=== PATIENT | male | born 1990 | race Caucasian/White ===

== ENCOUNTER 2022-11-23 10:58 | Outpatient (CLI) | payer OTHER, SELFPAY | END 2022-11-23 10:59 | disposition home or self-care (01) | LOC: LONREF 10:59 | PROVIDERS: PCP Family Medicine; Visit Provider Family Medicine | DX: Z13.6 Encounter for screening for cardiovascular disorders (principal) | CPT/HCPCS: 80061 ==

== ENCOUNTER 2022-12-08 15:22 | Emergency (ER) | payer OTHER, SELFPAY ==
[2022-12-08 15:31] VITALS: BP 170/95; PULSE 106; RESP 16; TEMP 36.7; O2SAT 96; BMI 36.6
[2022-12-08 15:36] VITALS: BP 159/83
--- NOTE | 2022-12-08 18:29 | ED.LOWEXIN ---
HPI - Extremity Injury (Lower) General Time Seen by Provider: 18:29 Date Seen: 12/08/22 Chief Complaint: Extremity Pain/Injury, Lower Stated Complaint: Fell Sat-Amb to 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 He took off at a sprint during his job. He states he made about 4 steps and then his knee just gave out, felt a pop. He initially went to [facility], states he got an x-ray, got oxycodone. He was referred to [facility] and saw a PA in the urgent care. They are waiting prior authorization of an MRI of this knee. Today he noted that his left calf looks smaller than the right. They are noticing some bruising that is developing behind the left ankle. He had an area below the left knee that was ice cold, toes felt tingly for a while. This is resolved by the time I am seen him. There was unfortunately a wait and high volume in our ER. He states that he was given a knee immobilizer from [facility] but the PA that he saw at [facility] told him that he should get out of this as soon as possible after 24 hours, did not want him to get a stiff knee. He has crutches as well to ambulate with. He has to use the knee immobilizer at night otherwise he will have sharp and severe pain when rolling or moving. His pain management is not adequate, did not take more pain medicines when offered by [facility]. Related Data Previous Rx's Medication Instructions Recorded valacyclovir 1 gram tablet 1,000 mg PO TID #21 tabs 03/17/22 escitalopram oxalate 20 mg tablet 20 mg PO QDAY #30 tabs 11/23/22 dextroamphetamine-amphetamine ER 20 mg PO QAM #30 caps 12/08/22 20 mg 24hr capsule,extend release oxycodone 5 mg tablet 5 mg PO Q6H PRN pain #10 tabs 12/08/22 Allergies Allergy/AdvReac Type Severity Reaction Status Date / Time No Known Allergies Allergy Unknown Verified 12/08/22 15:31 Review of Systems Narrative: As per HPI. PFSH PFSH Family History Other Diabetes Social History What is your current living situation?: I presently have a place to live Problems where you live: no known problems In the past 12 months, utilities in danger of being shut off: no In past 12 months, lack of transportation kept you from medical appts, meetings, work, or getting things needed for daily living: no In the past 12 mos, have been you worried that your food would run out before you had money to buy more?: never true In the past 12 mos, the food you bought just didn't last and you didn't have money to buy more?: never true Smoking Status: Never smoker Do you use any of these nicotine containing products: Smokeless Tobacco Second hand tobacco smoke exposure: No How often do you have a drink containing alcohol: never How often do you have six or more drinks on one occasion: Never AUDIT-C Alcohol total score: 0 Non-prescribed substance use: denies use How often does anyone, including family, friends and others, physically hurt you: never How often does anyone, including family, friends and others, insult or talk down to you: never How often does anyone, including family, friends and others, threaten you with harm: never How often does anyone, including family, friends and others, scream or curse at you: never Little interest or pleasure in doing things: nearly every day Feeling down, depressed, or hopeless: nearly every day service: No Exam Const: Vital Signs, click to edit/add: Vital Signs - 24 hr 12/08/22 15:31 12/08/22 15:36 Temperature 98.0 F Pulse Rate [Pulse Oximeter] 106 H Respiratory Rate 16 Blood Pressure [Ri ght Upper Arm] 170/95 H 159/83 H Pulse Oximetry 96 Oxygen Delivery Me thod Room Air Patient ambulated in with crutches, no knee immobilizer. He has little bit of well-healing abrasion anteriorly over the left knee area. There is a little bit of soft tissue change but no definite effusion of the left knee. He has the ability to straight leg raise. His pain seems to be more interior in the knee despite worry palpate medially, laterally over anteriorly over the knee. The patella is intact. Achilles is intact on testing. Indeed visually he looks like there is a paucity of muscle tissue medially over the gastrocs when I compare it to his right side. There is no significant erythema no significant coloration change outside of a little bit of dependent bruising inferiorly and posteriorly behind the lateral malleolus on the left. His dorsalis pedis and posterior tibialis pulses are equal and symmetrical. He has normal coloration of his skin, skin is warm throughout his left lower extremity. Normal sensation of the toes, normal cap refill. Did briefly review sensory changes that sometimes can happen with injuries, right now his exam is normal. Documenting provider has reviewed patient's vital signs: yes Course Course ED Course: Reviewed with patient that we can look at a musculoskeletal ultrasound to see if there is any deficit. Right now I see absolutely no clinical changes of any sensation or vascularity. His legs are equally warm. They did state that earlier there was a patch of white just below his left knee that was ice cold. His toes felt numb and tingly at the time. With a negative x-ray reported from [place], no dislocation, doubt that there is any lack of vascular integrity. There is no swelling to suggest any DVT. Indeed he looks like he has loss of maybe some muscle mass medially along the gastrocnemius. We discussed that I do not have MRI here nor would I order it in this situation. It is not needed emergently. Did also ask about the knee immobilizer. He states the orthopedic PA he saw told him that he should not wear it after 24 hours, should try to be out of it so his knee would not stiffen up. He does describe that sleeping is quite problematic, he needs to wear it at night otherwise he wakes up with pain with rolling or moving. Reevaluation(s) Time of Reevaluation #1: 19:08 Reevaluation #1: Unfortunately, our practice physician does not feel comfortable without having the radiologist here to do an MSK ultrasound. She does feel MRI would probably be more appropriate and again is not needed emergently. I did go back and talk to the patient and his about this. We reiterated using the knee immobilizer as needed for pain control and ambulation. He does have crutches. I would not have him bear weight on this leg without the knee immobilizer on if it is painful. We did discuss the possibility of further injury if he stepped wrong placed weight on this wrong and the knee gave out. He did not take any pain meds from [facility] on Wednesday. He had been in the ER in [place] and by the time he got to [facility], was still feeling the effects of the oxycodone given to him in [place]. I will give them a small amount of pain medicines, will need to follow up with primary care provider or Orthopedics for further pain management. Vital Signs Vital signs: Initial Vital Signs Temperature 98.0 F 12/08/22 15:31 Temperature Source Temporal Artery Scan 12/08/22 15:31 Pulse Rate 106 H 12/08/22 15:31 Pulse Rhythm Regular 12/08/22 15:31 Pulse Strength 3+ Normal 12/08/22 15:31 Respiratory Rate 16 12/08/22 15:31 Blood Pressure 170/95 H 12/08/22 15:31 Blood Pressure Mean 120 H 12/08/22 15:31 Blood Pressure Position Sitting 12/08/22 15:31 Pulse Oximetry 96 12/08/22 15:31 Oxygen Delivery Method Room Air 12/08/22 15:31 Vital Signs Temperature 98.0 F 12/08/22 15:31 Pulse Rate 106 H 12/08/22 15:31 Respiratory Rate 16 12/08/22 15:31 Blood Pressure 170/95 H 12/08/22 15:31 Pulse Oximetry 96 12/08/22 15:31 Oxygen Delivery Method Room Air 12/08/22 15:31 Temperature 98.0 F 12/08/22 15:31 Pulse Rate 106 H 12/08/22 15:31 Respiratory Rate 16 12/08/22 15:31 Blood Pressure 159/83 H 12/08/22 15:36 Pulse Oximetry 96 12/08/22 15:31 Oxygen Delivery Method Room Air 12/08/22 15:31 Critical Care Time Critical Care Time Critical Care Time: No Discharge Plan Discharge Clinical Impression: Injury of knee, left Patient Disposition: Home, Self-Care Condition: Stable Instructions: Knee Pain (ED) Additional Instructions: Continue to use knee immobilizer as needed for sleeping and if needed for pain-free ambulation. Continue with crutches. Do not bear weight on this leg if it is hurting to do so. Tylenol 1000 mg 3 times a day baseline for pain control. Can supplement with ibuprofen per bottle directions for extra pain management. Can use the oxycodone at bedtime to help you with sleep. This is a narcotic, can be addictive and certainly constipating. If you develop constipation from it, try MiraLax and or senna. Need to follow up with Orthopedics for further evaluation and management of this injury. Activity Level: No Weight Bearing Prescriptions: New oxycodone 5 mg tablet 5 mg PO Q6H PRN (Reason: pain) Qty: 10 0RF No Action escitalopram oxalate 20 mg tablet 20 mg PO QDAY Qty: 30 2RF valacyclovir 1 gram tablet 1,000 mg PO TID Qty: 21 3RF dextroamphetamine-amphetamine 20 mg capsule,extended release 24hr 20 mg PO QAM Qty: 30 0RF Follow Up/Referrals: Cosme Pena MD [Primary Care Provider] - Stand Alone Forms: [employer] Info Instructions
== END 2022-12-08 19:21 | disposition home or self-care (01) ==
PROVIDERS: Emergency Provider Family Medicine; PCP Family Medicine
DX: S89.92XA Unspecified injury of left lower leg, initial encounter (principal); Y93.02 Activity, running
CPT/HCPCS: 99282; 99283

== ENCOUNTER 2023-05-04 19:41 | Outpatient (CLI) | payer OTHER, SELFPAY ==
--- NOTE | 2023-05-12 09:16 | W.PM.SLEEP ---
Sleep Study Details Details Interpreting Provider: Josee Date of Sleep Study: 05/04/23 Sleep Study Details: STUDY TYPE:? Home unattended ? BMI:? 36.6 ORDERING PROVIDER:Reuben Tripp INDICATION:? Concerns about sleep apnea ? SLEEP SUMMARY:? 210.5 minutes monitored RESPIRATORY SUMMARY:? AHI 6.8 Low oxygen 84 1% of study oxygen less than 90% Snoring 76.8% Supine AHI 13.2, right lateral AHI 1.2 PERIODIC LIMB MOVEMENTS OF SLEEP:? Not recorded during home study CARDIAC:? Range 54-105, mean 69.6 IMPRESSION:? Mild obstructive sleep apnea with supine position dependency RECOMMENDATION: Treatment options include weight loss, trial of positional therapy, AutoSet CPAP pressure 4-17, or dental appliance.
== END 2023-05-04 19:42 | disposition home or self-care (01) ==
LOC: SLEEP 19:41
PROVIDERS: PCP Family Medicine; Visit Provider Otolaryngology
DX: G47.33 Obstructive sleep apnea (adult) (pediatric) (principal)
CPT/HCPCS: 95806

== ENCOUNTER 2025-01-15 15:29 | Outpatient (CLI) | payer OTHER, SELFPAY | END 2025-01-15 15:30 | disposition home or self-care (01) | PROVIDERS: PCP Family Medicine; Visit Provider Family Medicine | DX: E78.5 Hyperlipidemia, unspecified (principal); Z13.1 Encounter for screening for diabetes mellitus | CPT/HCPCS: 80048; 80061 ==